=== PATIENT | female | born 1965 | race Caucasian/White ===

== ENCOUNTER 2020-12-15 07:44 | Day surgery (SDC) | payer OTHER, SELFPAY ==
--- NOTE | 2020-12-13 11:43 | PCM.HP.BLA ---
History and Physical Date of Admission: 12/15/20 HPI: The patient is a 55 year old female presenting for pre-operative visit. She is scheduled for removal of vaginal cyst, for vaginal cyst on 12/15/20. Procedure discussed along with risks, benefits and complications. Other alternatives discussed for management. Consent form signed? Yes. ? ? PAST MEDICAL HISTORY PAST MEDICAL HISTORY Diagnosis Date ? ADD (attention deficit disorder) ? ? Cataract ? ? OU ? Degenerative disc disease 2004 ? lumbar, L5, hx of back injury ? Goiter, nontoxic, multinodular ? ? Low HDL (under 40) ? ? Normal tension glaucoma ? ? moderate OD, severe OS ? NS (nuclear sclerosis), bilateral ? ? Bilateral ? Optic pit, left ? ? POAG (primary open-angle glaucoma) ? ? OD moderate, OS severe ? Syncope ? ? faints easily with medical procedures that are more bloody ? Vitamin D deficiency ? ? ? PAST SURGICAL HISTORY PAST SURGICAL HISTORY Procedure Laterality Date ? COLONOSCOP W/ OR W/O [facility] SPEC ? 04/06/2019 ? Colonoscopy ? D&C, DIAG AND/OR THERAPEUTIC ? 1986 ? Dilation & curettage ? LIGATE FALLOPIAN TUBE ? 1993 ? Tubal ligation ? PAST SURGICAL HISTORY OF ? ? ? Breast biopsy ? THYROIDECTOMY Left 12/2019 ? left and center ? ? ? CURRENT MEDICATIONS Current Outpatient Medications Medication Sig Dispense Refill ? latanoprost (XALATAN) 0.005 % ophthalmic solution Use 1 Drop in both eyes daily at bedtime. 1 Bottle 4 ? MULTIVITAMIN ORAL TAB Take one(1) tablet daily. ? 0 ? Current Facility-Administered Medications Medication Dose Route Frequency Provider Last Rate Last Admin ? fluorescein-benoxinate 0.25-0.4 % 1 Drop (FLURESS) 1 Drop BOTH EYES As Directed Rainer Kramer MD 1 Drop at 12/12/20 0830 ? ? ALLERGIES: Patient has no known allergies. ? PERSONAL HISTORY: SOCIAL HISTORY Social History ? Tobacco Use ? Smoking status: Former Smoker ? ? Years: 2.00 ? ? Types: Cigarettes ? ? Quit date: 06/24/1994 ? ? Years since quittin.4 ? Smokeless tobacco: Never Used ? Tobacco comment: less than half a pack a day Vaping Use ? Vaping Use: Never used Substance Use Topics ? Alcohol use: No ? Drug use: No ? FAMILY HISTORY: FAMILY HISTORY FAMILY HISTORY Problem Relation Age of Onset ? Hearing Loss Mother ? ? Cancer Mother ? ? skin ? Thyroid Mother ? ? Cataract Mother ? ? Heart Mother ? ? Psychiatry Father 48 ? bipolar dx ? Cancer Father ? ? skin ? Glaucoma Father ? ? Cataract Father ? ? Dementia Father ? ? Breast Cancer Maternal Grandmother ? ? Cancer Paternal Grandmother ? ? Cancer Paternal Grandfather ? ? ? REVIEW OF SYMPTOMS: GENERAL: denies fevers or chills ENDOCRINOLOGY: has not been on steroids Cardiology : denies palpitations or chest pain Respiratory: denies SOB or cough Hematology: denies history of prolonged bleeding or easy bruising or VTE Allergy: Denies history of personal or family history of allergy to anesthesia ? PHYSICAL EXAMINATION: ? VITALS: Last menstrual period 11/06/2019. ? GENERAL: The patient is well nourished, well hydrated in no acute distress. , The patient is oriented to time, place, and person. NECK: Supple. No lynphadenopathy, normal thyroid, no thyromegaly. LUNGS: Clear to auscultation bilaterally. no wheezes, rhonchi or rales HEART: Regular rate and rhythm, Normal heart sounds and No murmurs or gallops ? IMPRESSION: vaginal wall cyst ? PLAN: The risks/benefits/alternatives and personal involved for the planned vaginal cyst removal were reviewed with the patient. Her questions were answered to her satisfaction and she desires to proceed. Consent was signed. I reviewed with her postop instructions and expectations. ? ? I have reviewed and updated past medical and surgical history, medications and allergies> This H&P was completed in my office on 12/12/20. Assessment & Plan Assessment/Plan (1) Cyst, vagina, embryonal:
[2020-12-15] VITALS (8 sets, daily range): BP systolic 86–113; BP diastolic 55–72; PULSE 46–61; RESP 16; TEMP 35.9–36.8; O2SAT 100; BMI 24.9
[2020-12-15] MEDS: Lactated Ringers 1,000 ML 100 ML IV (08:19)
--- NOTE | 2020-12-15 09:00 | VAGW_PTH ---
PATIENT: NATALIA BURNETTT #:[id number] LOC: [facility] [place] U#:[id number] AGE/SX: 55/F ROOM: RE12/15/[address]: Dr. Carlita Simmons MD : 1965 BED: DIS: 12/15/2020 SPEC #: [id number] RECD: 12/15/20 10:38 STATUS: ARLENE HAMMER #: [id number] KATELIN: 12/15/20 09:[address]: Carlita Simmons DEPT: SURGICAL PATHOLOGY RECD BY: Kyra Wiggins ENTERED: 12/15/20 11:17 SP TYPE: VAG WALL OTHR DR: Dr. Mustapha Duncan, DO Tissues: Vagina, NOS Procedures: Surgery Specimen Level IV HEADER OPERATION: Removal vaginal wall cyst PRE-OP DIAGNOSIS: Cyst, vagina, embryonal TISSUE SUBMITTED: Vaginal wall cyst MICROSCOPIC DIAGNOSIS Vaginal wall cyst, excisional biopsy: Benign epithelial cyst, favor Mullerian/mucous cyst with focal squamous metaplasia. Negative for malignancy. DOMINIC:wayne 12/16/2020 COMMENT Case has been reviewed in consultation with Dr. Suarez who concurs with the above diagnosis. IDC:AM MICROSCOPIC DESCRIPTION Slides are reviewed. GROSS DESCRIPTION Received in fixative is one container labeled with the patient's name and designated vaginal wall cyst. The specimen consists of a collapsed humphrey-pink cyst measuring 2 x 1.8 x 0.9 cm. The specimen is inked, serially sectioned and submitted entirely in one cassette. / DOMINIC:wayne 12/15/20 TC:5 CPT: 67320
--- NOTE | 2020-12-15 09:12 | PCM.OPRPT ---
Problems Associated Problem List Diagnoses (1) Cyst, vagina, embryonal: Report of Operation Date of Procedure: 12/15/20 Pre-Operative Diagnosis: vaginal wall cyst Post-Operative Diagnosis: same Surgery/Procedure Performed:: Removal of vaginal wall cyst Description of Surgical Findings:: Anterior midline vaginal wall cyst filled with mucinous material Surgeon: Carlita Simmons network applications specialist: VERO teixeira Type of Anesthesia: MAC/Supplemental/Local Anesthesiologist: Man Jimenez Special Medications: none Specimen's removed: vaginal wall cyst Drains: none Estimated Blood Loss (mL): 10 Fluids Replaced: 500 Description of Procedure: The patient was to to the operating room where she was prepped draped in dorsolithotomy position. The vaginal wall cyst was identified and the vaginal epithelium over the cyst was grasped with Allis clamps. The vaginal epithelium overlying the cyst was infiltrated with half percent Marcaine solution. An incision was made over the midportion of the cyst. A small incidental puncture the cyst was performed and mucinous material exuded. The vaginal cyst was then dissected off the end the overlying vaginal wall epithelium with blunt and sharp dissection. A Cohen catheter was placed in the urethra to ensure that could easily identify the urethra and the bladder. The vaginal cyst was removed completely. The defect in the vagina was then repaired with 3-0 Vicryl Rapide suture. A deep layer was placed. And the vaginal epithelium itself was closed with the same suture in a running locked fashion. Excellent hemostasis was noted. A vaginal sweep was completed by me after the vaginal instruments were removed. Sponge and needle counts were correct. The specimen was handed off and the patient was taken to the recovery room in stable condition. Grafts/Implants Used: none Procedure Start Time: :19 Procedure Stop Time: 09:36 Complications none Admit VTE Documentation VTE Present on Admission: No VTE Mechan Device Prophylaxis: SCD's VTE Pharm Prophylaxis ordered?: No Reason prophylaxis not ordered:: Procedure Not Indicated
[2020-12-15] MEDS: Bupivacaine Mpf 0.5% 30 ML VIAL (09:19)
--- NOTE | 2020-12-15 09:41 | PCM.DC ---
Discharge Instructions Diet Discharge Diet: No restrictions Activity Discharge Activity: May Shower Return to work on:: 12/16/20 May resume sexual activity in: 2 weeks Lifting Restrictions: none Dressing / Incision Call your doctor if your incision/area has: Sudden Increased Bleeding and Foul Smelling Discharge Call your doctor if you observe: Fever of 101 or Higher and Using more than 1 pad per hour (for 2 hrs in a row) Follow Up Care Please Follow Up With: Carlita Simmons MD When: 2-4 weeks or as needed. Call [phone] to make an appointment or with any concerns. Test Results: Test results from this visit will be discussed in further detail at your follow-up appointment, if applicable. Discharge Plan Admission Primary Reason for Your Visit: vaginal wall cyst Attending Provider: Carlita Simmons Primary Care Provider: Mustapha Duncan Discharge Orders/Prescriptions Prescriptions: No Action latanoprost 0.005 % Drops 1 drp EACH EYE QPM RF: 0 multivitamin Capsule 1 cap PO DAILY RF: 0 Referrals / Follow Up: Mustapha Duncan DO [Primary Care Provider] - Disposition Disposition (needs filled in before D/C Order can be placed): Home, Self Care
== END 2020-12-15 10:45 | disposition home or self-care (01) ==
LOC: SDC 07:46 → AC 07:48
PROVIDERS: PCP Student in an Organized Health Care Education/Training Program; Referring Provider Obstetrics & Gynecology; Visit Provider Obstetrics & Gynecology
PROC: (CPT 56740; principal; 2020-12-15 08:50)
DX: N89.8 Other specified noninflammatory disorders of vagina (principal); L72.0 Epidermal cyst; Z87.891 Personal history of nicotine dependence; Z80.3 Family history of malignant neoplasm of breast; Z83.49 Family history of other endocrine, nutritional and metabolic diseases
CPT/HCPCS: 00940; 57135; 88305; J7120; J2405

== ENCOUNTER → 2023-11-19 | Outpatient (CLI) | payer OTHER, SELFPAY ==
[2023-11-19 09:43] LABS: Absolute Lymphocyte Count 1.42 X10^3/uL (0.83-4.51); Absolute Neutrophil Count 2.3 X10^3/uL (2.0-7.7); Basophil# 0.04 X10^3/uL; Eosinophil# 0.08 X10^3/uL; Eosinophils% 1.9 % (0-5); Hemoglobin 14.6 g/dL (12.0-15.0); Lymphocyte # 1.42 X10^3/ul (0.83-4.51); Lymphocyte % 34.2 % (19-41); Mean Corpuscular Hgb 30.4 pg (27.0-32.0); Mean Corpuscular Volume 89.6 fL (81-99); Mean Platelet Vol. 10.8 fl (6.2-12.0); Monocyte# 0.31 X10^3/uL; Monocyte% 7.5 % (0-10); NRBC Flagged by Analyzer 0 % (0-5); Neutrophil # 2.29 X10^3/uL (2.7-7.7); Neutrophil % 55.2 % (47-70); Platelet Count 246 K/mm3 (150-450); RBC Distribution Width CV 11.9 % (11.6-14.6); RBC Distribution Width SD 38.8 fl (35.1-43.9); White Blood Count 4.2 K/mm3 (4.4-11.0)
[2023-11-19 10:26] LABS: ALB/GLOB Ratio 1.1 RATIO (0.9-2.4); AST(SGOT) 35 U/L (15-37); Alanine Aminotransfer ALT/SGPT 42 U/L (13-56); Alkaline Phosphatase 59 U/L (45-117); Anion Gap 6 (5-15); BUN 13 mg/dL (7-18); BUN/Creat Ratio 18.3 RATIO (10-20); Calcium,Total 8.9 mg/dL (8.5-10.1); Chloride 109 mmol/L (98-107); Cholesterol 284 mg/dL (200); Creatinine, Serum 0.71 mg/dL (0.55-1.02); EST Glomerular Filtration Rate 90 mL/min (>60); Est Glom Filt Rate - Afr Amer 109 mL/min (>60); Free T3 2.8 pg/mL (2.18-3.98); Globulin 3.8 g/dL (2.2-4.2); Glucose 105 mg/dL (74-106); High Density Lipoprotein 69 mg/dL; Protein, Total 7.8 g/dL (6.4-8.2); Sodium Level 140 mmol/L (136-145); T4 Free Direct 0.87 ng/dL (0.76-1.46); Thyroid Stim Hormone (TSH) 2.35 uIU/mL (0.358-3.74); Triglycerides 128 mg/dL; Very Low Density Lipoprotein 26 mg/dL (5-40)
[2023-11-19 12:17] LABS: Vitamin B12 493 pg/mL (211-911); Vitamin D,25 Hydroxy 28.2 ng/mL
[2023-11-20 04:07] LABS: Thyroid Peroxidase AB < 9 IU/mL (0-34)
== END | disposition home or self-care (01) ==
PROVIDERS: PCP Family Medicine; Referring Provider Family Medicine; Visit Provider Family Medicine
DX: Z13.9 Encounter for screening, unspecified (principal); E89.0 Postprocedural hypothyroidism; E55.9 Vitamin D deficiency, unspecified
CPT/HCPCS: 36415; 80053; 80061; 82306; 82607; 84439; 84443; 84481; 85025; 86376